=== PATIENT | male | born 2000 ===

== ENCOUNTER 2024-03-08 00:18 | Emergency (ER) | payer SELFPAY ==
[~2024-03-08] VITALS: Ht 188 cm; Wt 72.7 kg
[2024-03-08 00:27] VITALS: BP 139/92; PULSE 117; RESP 18; TEMP 98.2; O2SAT 99
== END 2024-03-08 01:06 ==
LOC: EMS 00:18
DX: S00.83XA Contusion of other part of head, initial encounter (principal); X58.XXXA Exposure to other specified factors, initial encounter; Y93.89 Activity, other specified; Y92.89 Other specified places as the place of occurrence of the external cause; Y99.8 Other external cause status
CPT/HCPCS: 99283; Z7502